=== PATIENT | female | born 1950 | race Caucasian/White ===

== ENCOUNTER 2017-03-02 14:08 | Observation (INO) ==
[2017-03-02] MEDS ORDERED: 0.9 % Sodium Chloride 1,000 ML IVC ONE (14:20)
--- NOTE | 2017-03-02 14:20 | Emergency Department Note ---
Disposition Clinical Impression: Abnormal chest CT, Thoracic compression fracture, Syncope, Frail elderly, Hepatic lesion, Fluid in endometrial cavity, Lesion of lung, DJD (degenerative joint disease) of cervical spine, Head injury, Pleural effusion, Diverticulosis , Atelectasis, right, Vomiting, Confusion, Dizziness, UTI (urinary tract infection) Disposition: Admitted As Inpatient Condition: Fair Referrals: NO,PCP [Non-Partnered Physician] - Forms: ED Satisfaction Letter General Adult HPI - General Chief complaint: ED Syncope Stated complaint: "passed out at [place]" Source: EMS Limitations: no limitations - History of Present Illness HPI Narrative: 66-year-old female reports emergency department with concerns for passing out. The patient reports she became severely dizzy and then a syncopal event as described. She states she went to an emergency department today and was evaluated for back pain. She describes flank pain. As well as spinal pain. A CT and pelvis was performed and she describes being diagnosed with a spinal fracture. She took a Flexeril 11:00 this morning. She went to her audiology appointment 11:30 AM and was feeling well. She went to a store with her and reportedly had a syncopal event about 2 PM. The patient was out for 2 or 3 minutes and was notably confused. She had an episode of nonbloody emesis. The patient does not really remember what happened. There is no history of seizure-like activity. Patient reports she "never passes out". She has no history of seizures or diabetes. The patient states she has some head pain. There is no history of laceration. No bleeding. No history of neck pain or abdominal pain chest pain or shortness of breath. No upper or lower extremity pain no fever, arthritis or pain sore throat or coughing up blood. There is no history of the DVT or cancer. The patient reports a remote history of pleural effusion requiring thoracentesis. Pain Scale: 6 - Related Data Home Medications Medication Instructions Recorded Confirmed Lisinopril/Hydrochlorothiazide 1 each PO DAILY 03/02/17 03/02/17 [Zestoretic 10-12.5 mg Tablet] Previous Rx's Medication Instructions Recorded Cetirizine HCl [Zyrtec] 10 mg PO QAM #30 capsule 08/27/15 Cyclobenzaprine [Flexeril] 10 mg PO TID #21 tablet 06/09/17 HYDROcodone/Acet 5/325 mg [[place] 1 tab PO Q6H #14 tab 03/02/17 5-325 mg] Allergies Allergy/AdvReac Type Severity Reaction Status Date / Time Erythromycin Base Allergy Hives Verified 03/02/17 08:37 levofloxacin [From Levaquin] Allergy See Verified 03/02/17 08:37 Comments methylprednisolone Allergy Hives Verified 03/02/17 08:37 Minocycline Allergy See Verified 03/02/17 08:37 Comments Penicillins Allergy Swelling Verified 03/02/17 08:37 of Lip/Tongue/Throat All systems ED: reviewed and negative except as stated. 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 Absent: scleral icterus, conjunctival injection, miosis, mydriasis - ENT ENT exam: normal exam, normal oropharynx, mucous membranes moist, normal external ear exam, other (Hearing aid in place) - Neck Neck exam: Present: normal inspection, full ROM, trachea midline. Absent: tenderness - Chest Chest inspection: Present: symmetric chest wall rise. Absent: tenderness - Respiratory Respiratory exam: Present: normal lung sounds bilaterally. Absent: respiratory distress, wheezes, stridor, accessory muscle use, prolonged expiratory phase - Cardiovascular Cardiovascular exam: Present: regular rate, normal rhythm, normal heart sounds - Abdominal Exam Abdominal exam: Present: soft, Non-Tender, normal bowel sounds. Absent: tenderness, distention, guarding, rebound, rigidity, pulsatile mass - Extremities Exam Extremities exam: Present: normal capillary refill, pedal edema. Absent: normal inspection, joint swelling, calf tenderness - Expanded Lower Extremity Exam Hip/Pelvis exam: Present: full ROM. Absent: tenderness Upper leg exam: Present: full ROM. Absent: tenderness Knee exam: Present: full ROM. Absent: tenderness Lower leg exam: Present: full ROM. Absent: tenderness, Homans' sign Ankle exam: Present: full ROM. Absent: tenderness Foot/toe exam: Present: full ROM. Absent: tenderness Neurovascular/Tendon exam: Present: normal capillary refill. Absent: motor deficit, sensory deficit, tendon deficit, extremity cold to touch, pallor - Back Exam Back exam: Present: normal inspection, full ROM. Absent: tenderness, CVA tenderness (L), vertebral tenderness - Neurological Exam Neurological exam: Present: alert, oriented X3, CN II-XII intact. Absent: motor sensory deficit - Psychiatric Psychiatric exam: Present: normal affect, normal mood - Skin Skin exam: Present: warm, dry, intact, normal color. Absent: rash, cyanosis, diaphoresis, erythema, pallor, mottled Course Vital Signs Temperature 97.5 F L 03/02/17 14:14 Pulse Rate 71 03/02/17 14:14 Respiratory Rate 16 03/02/17 14:14 Blood Pressure 136/71 03/02/17 14:14 O2 Sat by Pulse Oximetry 98 03/02/17 14:14 Temperature 97.5 F L 03/02/17 14:14 Pulse Rate 75 03/02/17 16:00 Respiratory Rate 18 03/02/17 16:00 Blood Pressure 111/67 03/02/17 16:00 O2 Sat by Pulse Oximetry 98 03/02/17 16:00 Oxygen Delivery Oxygen Delivery Room Air Medical Decision Making - [facility] Narrative Medical decision making narrative: The patient is elderly, she states described severe dizziness, then had an apparent syncopal event, hit her head and was significantly confused after the event and vomited once. Based on initial post injury reports her Glascow coma score was 14 or less at the scene, subsequently she improved in her mentation. She was seen in an ER earlier today regarding back pain. She complains of persistent back pain. She has what appear to be compression fractures of thoracic spine. The patient was also reportedly seen at her job boss office today and then had a syncopal event and came to this ED. at the initial ED visit, her CT abdomen and pelvis revealed fluid in the uterus which is abnormal. Abnormal chest findings were also noted. CT chest reveals lung lesions and what appears to be rounded atelectasis of undetermined origin, possibly from her previous thoracentesis when she was young. Chest x-ray does describe pleural effusions. The patient's laboratory studies are unremarkable. EKG shows no acute changes. CT head and cervical spine are negative. The patient took a Flexeril about 11:00, she passed out about 2 PM. Medication effect could be considered. Urinalysis shows abnormality suggestive of UTI. Urine culture will be sent. Antibiotic therapy ordered. Based on the patient's severe dizziness and apparent syncopal event with a depressed Glascow coma score status post injury and vomiting, severe back pain with apparent thoracic compression fractures, her frail elderly state, abnormal chest and abdominal CT scans, I thought it be appropriate to admit the patient the hospital for further evaluation. She is currently stable. I discussed the case with the hospitalist on-call who was excepted the patient to their care. - Lab Data Lab results reviewed: Yes I reviewed the patient's lab results. Result diagrams: 03/02/17 14:58 03/02/17 14:58 Lab Results 03/02/17 03/02/17 03/02/17 Range/Units 14:58 14:58 14:58 WBC 8.5 (4.3-11.1) K/mcL RBC 4.02 (3.82-4.97) M/mcL Hgb 11.9 (11.5-15.4) g/dL Hct 36.8 (35.3-44.9) % MCV 91.5 (83.0-100.0) fL MCH 29.6 (28.0-33.3) pg MCHC 32.3 (31.6-35.5) g/dL RDW 13.0 (11.5-14.5) % Plt Count 200 (140-400) K/mcL MPV 10.9 (9.4-12.4) fL Immature Gran % 0.6 (0-4) % Seg Neutrophils % 80.1 % Lymphocytes % 10.8 % Monocytes % 7.5 % Eosinophils % 0.6 % Basophils % 0.4 % Neutrophils # 6.8 (1.6-8.9) K/mcL Lymphocytes # 0.9 (0.6-4.6) K/mcL Monocytes # 0.6 (0.0-1.3) K/mcL Eosinophils # 0.1 (0.0-0.6) K/mcL Basophils # 0.0 (0.0-0.2) K/mcL PT 11.7 (9.4-12.1) Seconds INR 1.1 APTT 26.2 (26.0-36.0) Seconds Sodium 138 (136-145) mEq/L Potassium 4.5 (3.5-4.5) mEq/L Chloride 102 (98-109) mEq/L Carbon Dioxide 27 (19-29) mEq/L BUN 21 H (7-20) mg/dL Creatinine 1.02 (0.57-1.11) mg/dL Est GFR ( Amer) > 60 (> 60) Est GFR (Non-Af Amer) 54 L (> 60) BUN/Creatinine Ratio 21 (6-26) Glucose 119 H (70-99) mg/dL Calculated Osmolality 290 (280-300) Lactic Acid (0.5-2.2) mmol/L Calcium 9.6 (8.6-10.8) mg/dL Total Bilirubin 0.8 (0.2-1.2) mg/dL Direct Bilirubin 0.3 (0.0-0.5) mg/dL Indirect Bilirubin 0.5 (0.0-1.2) mg/dL AST 15 (5-34) Units/L ALT 7 (0-55) Units/L Alkaline Phosphatase 65 (38-126) Units/L Troponin I (0-0.03) ng/mL C-Reactive Protein 9 H (Less than 5) mg/L B-Natriuretic Peptide (0-100) pg/mL Serum Total Protein 7.5 (6.0-8.3) g/dL Albumin 4.2 (3.5-5.0) g/dL Globulin 3.3 (2.4-3.5) g/dL Albumin/Globulin Ratio 1.3 (1.1-2.2) Urine Color (Yellow) Urine Clarity (Clear) Urine pH (5.0-8.0) pH Units Ur Specific [place] (1.010-1.025) Urine Protein (Neg-Trace) mg/dL Urine Glucose (UA) (Normal) mg/dL Urine Ketones (Negative) mg/dL Urine Blood (Negative) Urine Nitrite (Negative) Urine Bilirubin (Negative) Urine Urobilinogen (Normal) mg/dL Ur Leukocyte Esterase (Negative) Urine Microscopic RBC (0-3) per hpf Urine Microscopic WBC (0-3) per hpf Ur Squamous Epith Cells (None-Few) per lpf Urine Bacteria (None-Few) per hpf Hyaline Casts (None-Few) per lpf 03/02/17 03/02/17 03/02/17 Range/Units 14:58 14:58 14:58 WBC (4.3-11.1) K/mcL RBC (3.82-4.97) M/mcL Hgb (11.5-15.4) g/dL Hct (35.3-44.9) % MCV (83.0-100.0) fL MCH (28.0-33.3) pg MCHC (31.6-35.5) g/dL RDW (11.5-14.5) % Plt Count (140-400) K/mcL MPV (9.4-12.4) fL Immature Gran % (0-4) % Seg Neutrophils % % Lymphocytes % % Monocytes % % Eosinophils % % Basophils % % Neutrophils # (1.6-8.9) K/mcL Lymphocytes # (0.6-4.6) K/mcL Monocytes # (0.0-1.3) K/mcL Eosinophils # (0.0-0.6) K/mcL Basophils # (0.0-0.2) K/mcL PT (9.4-12.1) Seconds INR APTT (26.0-36.0) Seconds Sodium (136-145) mEq/L Potassium (3.5-4.5) mEq/L Chloride (98-109) mEq/L Carbon Dioxide (19-29) mEq/L BUN (7-20) mg/dL Creatinine (0.57-1.11) mg/dL Est GFR ( Amer) (> 60) Est GFR (Non-Af Amer) (> 60) BUN/Creatinine Ratio (6-26) Glucose (70-99) mg/dL Calculated Osmolality (280-300) Lactic Acid 1.2 (0.5-2.2) mmol/L Calcium (8.6-10.8) mg/dL Total Bilirubin (0.2-1.2) mg/dL Direct Bilirubin (0.0-0.5) mg/dL Indirect Bilirubin (0.0-1.2) mg/dL AST (5-34) Units/L ALT (0-55) Units/L Alkaline Phosphatase (38-126) Units/L Troponin I 0.00 (0-0.03) ng/mL C-Reactive Protein (Less than 5) mg/L B-Natriuretic Peptide 80 (0-100) pg/mL Serum Total Protein (6.0-8.3) g/dL Albumin (3.5-5.0) g/dL Globulin (2.4-3.5) g/dL Albumin/Globulin Ratio (1.1-2.2) Urine Color (Yellow) Urine Clarity (Clear) Urine pH (5.0-8.0) pH Units Ur Specific [place] (1.010-1.025) Urine Protein (Neg-Trace) mg/dL Urine Glucose (UA) (Normal) mg/dL Urine Ketones (Negative) mg/dL Urine Blood (Negative) Urine Nitrite (Negative) Urine Bilirubin (Negative) Urine Urobilinogen (Normal) mg/dL Ur Leukocyte Esterase (Negative) Urine Microscopic RBC (0-3) per hpf Urine Microscopic WBC (0-3) per hpf Ur Squamous Epith Cells (None-Few) per lpf Urine Bacteria (None-Few) per hpf Hyaline Casts (None-Few) per lpf 03/02/17 Range/Units 17:14 WBC (4.3-11.1) K/mcL RBC (3.82-4.97) M/mcL Hgb (11.5-15.4) g/dL Hct (35.3-44.9) % MCV (83.0-100.0) fL MCH (28.0-33.3) pg MCHC (31.6-35.5) g/dL RDW (11.5-14.5) % Plt Count (140-400) K/mcL MPV (9.4-12.4) fL Immature Gran % (0-4) % Seg Neutrophils % % Lymphocytes % % Monocytes % % Eosinophils % % Basophils % % Neutrophils # (1.6-8.9) K/mcL Lymphocytes # (0.6-4.6) K/mcL Monocytes # (0.0-1.3) K/mcL Eosinophils # (0.0-0.6) K/mcL Basophils # (0.0-0.2) K/mcL PT (9.4-12.1) Seconds INR APTT (26.0-36.0) Seconds Sodium (136-145) mEq/L Potassium (3.5-4.5) mEq/L Chloride (98-109) mEq/L Carbon Dioxide (19-29) mEq/L BUN (7-20) mg/dL Creatinine (0.57-1.11) mg/dL Est GFR ( Amer) (> 60) Est GFR (Non-Af Amer) (> 60) BUN/Creatinine Ratio (6-26) Glucose (70-99) mg/dL Calculated Osmolality (280-300) Lactic Acid (0.5-2.2) mmol/L Calcium (8.6-10.8) mg/dL Total Bilirubin (0.2-1.2) mg/dL Direct Bilirubin (0.0-0.5) mg/dL Indirect Bilirubin (0.0-1.2) mg/dL AST (5-34) Units/L ALT (0-55) Units/L Alkaline Phosphatase (38-126) Units/L Troponin I (0-0.03) ng/mL C-Reactive Protein (Less than 5) mg/L B-Natriuretic Peptide (0-100) pg/mL Serum Total Protein (6.0-8.3) g/dL Albumin (3.5-5.0) g/dL Globulin (2.4-3.5) g/dL Albumin/Globulin Ratio (1.1-2.2) Urine Color Yellow (Yellow) Urine Clarity Clear (Clear) Urine pH 6.0 (5.0-8.0) pH Units Ur Specific [place] > 1.030 H (1.010-1.025) Urine Protein Negative (Neg-Trace) mg/dL Urine Glucose (UA) Normal (Normal) mg/dL Urine Ketones Negative (Negative) mg/dL Urine Blood Small H (Negative) Urine Nitrite Negative (Negative) Urine Bilirubin Negative (Negative) Urine Urobilinogen Normal (Normal) mg/dL Ur Leukocyte Esterase Moderate H (Negative) Urine Microscopic RBC 5-15 H (0-3) per hpf Urine Microscopic WBC 15-30 H (0-3) per hpf Ur Squamous Epith Cells Many H (None-Few) per lpf Urine Bacteria None Seen (None-Few) per hpf Hyaline Casts None Seen (None-Few) per lpf - Radiology Data Radiology results reviewed: Yes I reviewed the patient's radiology results.
[2017-03-02 15:11] LABS: Basophils % 0.4 %; Eosinophils # 0.1 K/mcL (0.0-0.6); Eosinophils % 0.6 %; Hematocrit 36.8 % (35.3-44.9); Hemoglobin 11.9 g/dL (11.5-15.4); Immature Granulocytes % 0.6 % (0-4); Lymphocytes # 0.9 K/mcL (0.6-4.6); Lymphocytes % 10.8 %; Mean Corpuscular HGB Conc 32.3 g/dL (31.6-35.5); Mean Corpuscular Hemoglobin 29.6 pg (28.0-33.3); Mean Corpuscular Volume 91.5 fL (83.0-100.0); Mean Platelet Volume 10.9 fL (9.4-12.4); Monocytes # 0.6 K/mcL (0.0-1.3); Monocytes % 7.5 %; Neutrophils # 6.8 K/mcL (1.6-8.9); Platelet Count 200 K/mcL (140-400); Red Blood Count 4.02 M/mcL (3.82-4.97); Segmented Neutrophils % 80.1 %
[2017-03-02 15:18] LABS: Activated Partial Thrombo Time 26.2 Seconds (26.0-36.0)
[2017-03-02 15:23] LABS: INR 1.1; Prothrombin Time 11.7 Seconds (9.4-12.1)
[2017-03-02 15:30] LABS: Alanine Aminotransferase 7 Units/L (0-55); Albumin 4.2 g/dL (3.5-5.0); Albumin/Globulin Ratio 1.3 (1.1-2.2); Alkaline Phosphatase 65 Units/L (38-126); Aspartate Amino Transferase 15 Units/L (5-34); BUN/Creatinine Ratio 21 (6-26); Bilirubin,Direct 0.3 mg/dL (0.0-0.5); Bilirubin,Indirect 0.5 mg/dL (0.0-1.2); Bilirubin,Total 0.8 mg/dL (0.2-1.2); Blood Urea Nitrogen 21 mg/dL (7-20); C-Reactive Protein 9 mg/L (Less than 5); Calcium 9.6 mg/dL (8.6-10.8); Carbon Dioxide 27 mEq/L (19-29); Chloride 102 mEq/L (98-109); Globulin 3.3 g/dL (2.4-3.5); Glucose 119 mg/dL (70-99); Osmolality,Calculated 290 (280-300); Potassium 4.5 mEq/L (3.5-4.5); Sodium 138 mEq/L (136-145); Total Protein 7.5 g/dL (6.0-8.3); eGFR For African Americans > 60 (> 60); eGFR For Non-African Americans 54 (> 60)
[2017-03-02 17:29] LABS: Bacteria,Urine None Seen per hpf (None-Few); Bilirubin,Urine Negative (Negative); Blood,Urine Small (Negative); Clarity,Urine Clear (Clear); Color,Urine Yellow (Yellow); Glucose,Urine (UA) Normal (Normal); Hyaline Casts,Urine None Seen per lpf (None-Few); Ketones,Urine Negative (Negative); Leukocyte Esterase,Urine Moderate (Negative); Nitrite,Urine Negative (Negative); Protein,Urine Negative (Neg-Trace); Specific Gravity,Urine > 1.030 (1.010-1.025); Squamous Epithelial Cell,Urine Many per lpf (None-Few); Urobilinogen,Urine Normal (Normal); WBC,Urine 15-30 per hpf (0-3)
[2017-03-02] MEDS ORDERED: *HR* HYDROcodone/Acet 5/325 mg TABLET PO ONE (18:13)
[2017-03-02] MEDS ORDERED: Nitrofurantoin (BID) 100 MG CAPSULE PO ONE (18:39)
[2017-03-02] MEDS ORDERED: Naloxone 0.4 MG/ML INJ IVP PRN (19:40)
[2017-03-02] MEDS ORDERED: Ondansetron 4 MG/2 ML VIAL IVP PRN (19:40)
[2017-03-02] MEDS ORDERED: Acetaminophen 325 MG TABLET PO PRN (19:40)
--- NOTE | 2017-03-02 23:10 | Internal Med History&Physical ---
Date of Encounter: 03/02/17 Time of Encounter: 22:30 Assessment and Plan (1) Syncope Current visit: Yes Status: Acute Patient had an episode of syncope one to 2 hours after taking the new medication which is a muscle relaxant. It may be a side effect of the medication. Patient has never had a stress test. Will obtain echocardiogram and pharmacological stress test. Placed under observation on telemetry. Intravenous fluids. Qualifiers: Syncope type: unspecified Qualified Code(s): R55 - Syncope and collapse (2) HTN (hypertension) Current visit: Yes Status: Chronic Stable. Continue home medications Qualifiers: Hypertension type: essential hypertension Qualified Code(s): I10 - Essential (primary) hypertension Internal Medicine - H&P: HPI Chief complaint: Syncope Admitted From: Emergency Dept Plans for Post Hospital Care: Home History of present illness: Ms. Mercedes is a 66 year old female presented to the emergency room from [facility] after she had a syncopal episode there. 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 She went to the emergency room today for her back pain. She was given a single dose of muscle relaxant and discharged. After that, within 1-2 hours, she went shopping with her . While she was shopping, the patient felt like she was going to pass out and fell down and hit her head. She reports feeling lightheaded prior to passing out. She denies any nausea or excessive sweating prior to passing out. However, after passing out and waking up, she did have an episode of vomiting. There is no report of tongue biting, bladder or bowel incontinence. No history of chest pain, palpitations, vertigo, shortness of breath, cough or wheezing. No history of fever or chills. Past Med Surg Social Fam HX - Past Medical History Attestation: Yes The following information was validated with the patient. Source: patient Medical history: hypertension, other Psychiatric history: no psych history - Past Surgical History Surgical History: thyroidectomy - Social History Smoking Status: Never smoker Smokeless Tobacco Status: No Alcohol use: none Drug use: none Current living situation: Home, With Family Activity Level: Independent ambulation Recent Out of Country Travel Within the Last 8 Weeks: No Exposure or Possible Exposure to Illness During Travel: No - Family History Father Living Status: Age at : 95 Cause of : Luekemia Hx Family Cardiac Disorders: Yes Hx Family Respiratory Disorders: No Hx Family Cancer: Yes (Leukemia) Hx Family GI Disorders: No Hx Family Genitourinary Disorders: No Hx Family Endocrine Disorder: Yes (Thyroid) Hx Family Musculoskeletal Disorders: No Hx Family Neuromuscular Disorders: No Hx Family Neurologic Disorders: No Hx Family HEENT Disorders: No Hx Family Autoimmune Disorders: No Hx Family Reproductive Disorders: No Hx Family Psychosocial Disorders: Yes (Panic Attacks) Hx Family Medical Disorders: No Mother Hx Family Cardiac Disorders: Yes (HTN, HLD) Hx Family Respiratory Disorders: No Hx Family Cancer: No Hx Family GI Disorders: No Hx Family Genitourinary Disorders: No Hx Family Endocrine Disorder: Yes (DM, Thyroid disease) Hx Family Musculoskeletal Disorders: No Hx Family Neuromuscular Disorders: No Hx Family Neurologic Disorders: No Hx Family HEENT Disorders: No Hx Family Autoimmune Disorders: No Hx Family Reproductive Disorders: No Hx Family Psychosocial Disorders: No Hx Family Medical Disorders: No Internal Medicine - H&P: Meds Cetirizine HCl [Zyrtec] 10 mg PO QAM #30 capsule 08/27/15 [Rx] Aspirin 325 mg PO DAILY 03/02/17 [History] Cyclobenzaprine [Flexeril] 10 mg PO TID #21 tablet 03/02/17 [Rx] Fluticasone Propionate Nasal [Flonase] 50 mcg NS DAILY PRN 03/02/17 [History] HYDROcodone/Acet 5/325 mg [[place] 5-325 mg] 1 tab PO Q6H #14 tab 03/02/17 [Rx] Lisinopril/Hydrochlorothiazide [Zestoretic 10-12.5 mg Tablet] 1 each PO DAILY [History] [place]-3/Dha/Epa/Fish Oil [Fish Oil 1,000 mg Softgel] 1,000 mg PO DAILY 03/02/17 [History] Allergies Erythromycin Base Allergy (Verified 03/02/17 08:37) Hives levofloxacin [From Levaquin] Allergy (Verified 03/02/17 08:37) See Comments Nervousness methylprednisolone Allergy (Verified 03/02/17 08:37) Hives Minocycline Allergy (Verified 03/02/17 08:37) See Comments Nervousness Penicillins Allergy (Verified 03/02/17 08:37) Swelling of Lip/Tongue/Throat All Systems PM: A 10-system review of systems was performed and is negative for pertinent findings except as documented above in the HPI. - Constitutional Vitals: Temp Pulse Resp BP Pulse Ox 97.8 F 85 16 124/73 100 03/02/17 22:51 03/02/17 22:51 03/02/17 22:51 03/02/17 22:51 03/02/17 22:51 Exam: Gen.: Lying in bed. No acute distress. Eyes: Pupils equal, round and reactive to light. Extraocular muscles intact. ENT: Moist mucous membranes. No oropharyngeal erythema or discharge. Chest: Clear to auscultation bilaterally. No adventitious sounds present. CVS: First and second heart sounds present. No murmurs, rubs or gallops. Abdomen: Soft, nontender, nondistended. Bowel sounds present. No hepatosplenomegaly. Skin: No decubitus ulcers appreciated. 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 Psychiatric: Alert, awake and oriented to time, place and person. Lymphatic system: No lymphadenopathy appreciated Internal Med - H&P Results - Labs CBC & Chem 7: 03/02/17 14:58 03/02/17 14:58 Labs: Cardiac Enzymes 03/02/17 Range/Units 19:54 Troponin I 0.00 (0-0.03) ng/mL
[2017-03-02] MEDS ORDERED: Fluticasone Propionate Nasal 50 MCG/SPRAY BOTTLE NS PRN (23:15)
[2017-03-02] MEDS ORDERED: 0.9 % Sodium Chloride 1,000 ML IVC SCH (23:15)
[2017-03-03 00:40] LABS: Alanine Aminotransferase 7 Units/L (0-55); Albumin 3.4 g/dL (3.5-5.0); Albumin/Globulin Ratio 1.2 (1.1-2.2); Alkaline Phosphatase 54 Units/L (38-126); Aspartate Amino Transferase 12 Units/L (5-34); BUN/Creatinine Ratio 20 (6-26); Bilirubin,Total 0.6 mg/dL (0.2-1.2); Blood Urea Nitrogen 16 mg/dL (7-20); Calcium 8.7 mg/dL (8.6-10.8); Carbon Dioxide 26 mEq/L (19-29); Chloride 104 mEq/L (98-109); Globulin 2.9 g/dL (2.4-3.5); Glucose 108 mg/dL (70-99); Osmolality,Calculated 288 (280-300); Potassium 3.9 mEq/L (3.5-4.5); Sodium 138 mEq/L (136-145); Total Protein 6.3 g/dL (6.0-8.3); eGFR For African Americans > 60 (> 60); eGFR For Non-African Americans > 60 (> 60)
[2017-03-03] MEDS ORDERED: Regadenoson 0.4 MG/5 ML SYRINGE IVP ONE (07:11)
[2017-03-03] MEDS ORDERED: Loratadine 10 MG TABLET PO SCH (09:00)
[2017-03-03] MEDS ORDERED: Aspirin 325 MG TABLET PO SCH (09:00)
--- NOTE | 2017-03-03 14:12 | Nuclear Medicine Stress Report ---
Regadenoson Nuclear Stress Name: Stormy Mercedes Date of Study: 03/03/2017 Date: 1950 Ht: 64.0 in Medical Record#: [id number] Age: 66 Wt: 160.0 lb Gender: Female Order #: [id number] Location: [facility] Room: [facility] Supervising Provider: Liza Khanna CNP Reading Physician: Mario Fernandez MD, [facility] Ordering Physician: Flavio Buckner CNP Primary Care Physician: Flavio Buckner CNP Stress Technologist: Lisa Magana, HEALTH INSURANCE AGENT, CCT, CPFT Director Ehs: Brett Reeves Indications: Syncope Impression: No significant ECG changes with regadenoson. Gated LVEF > 70%. Perfusion imaging was negative for ischemia or infarct. History: Hypertension Stress Test Summary: Stress Test Type: Pharmacologic Regadenoson 0.4mg/5ml given IV Baseline Information: Initial Heart Rate: 85 Blood Pressure: 142/70 Stress Information: Test Terminated Due to (primary): As per protocol Maximum Blood Pressure: 122/62 Maximum Heart Rate: 125 Percent Maximum Heart Rate Achieved: 78 Double Product: [id number] Symptoms: Shortness of breath Nuclear Summary: SPECT myocardial perfusion imaging using Tc99m Sestamibi given intravenously was performed at rest and following cardiac stress testing. The resting images were obtained following initial dose of 11.3 mCi. Following stress an additional dose of 31.2 mCi was given at peak exercise or 30 seconds post regadenoson infusion. Findings: Stress Note * Resting ECG demonstrated normal sinus rhythm. * No baseline arrhythmias were noted. * Patient had no chest pain during stress. * No arrhythmias were noted during stress. * No significant ECG changes with regadenoson. Hemodynamic responses * Normal hemodynamic responses to pharmacologic stress. Study Quality * Study quality is good. Gated EF > 70% * Gated LVEF > 70%. Left Ventricle * The left ventricle is not dilated. * Normal Segmental Perfusion in rest. * Normal segmental perfusion in stress. TID * No evidence of transient ischemic dilatation. Updated by Mario Fernandez MD, [facility] on 03/03/2017 2:04:20 PM electronically signed on 03/03/2017 2:04:39 PM with status of Final
--- NOTE | 2017-03-03 15:07 | Discharge Summary ---
Date of Encounter: 03/03/17 Time of Encounter: 15:00 - Discharge Diagnosis (1) Syncope Priority: Primary Status: Acute Comments: Patient states that she was seen in the emergency department at [facility] yesterday due to back pain. She said she was diagnosed with a vertebral fracture. Patient states that she was given Percocet and Flexeril at the emergency department at about 2 hours later was out shopping and had a syncopal episode. She said she was awake for the whole thing and remembers at all. Said there was a man standing next to her who witnessed the episode and states that even he told her she did not lose consciousness. She said after her syncopal episode she was sitting in the floor, at [employer] and had one episode of vomiting. She is brought to the emergency department for evaluation. A stress test today that showed a gated EF greater than 70% and was negative for ischemia or infarct. She also had a chest CTA that was negative for PE, left hemithorax pleural calcifications that could represent a prior hemothorax or asbestos exposure. And a masslike consolidation left lower lobe suggestive of rounded atelectasis. Patient had an echocardiogram that showed normal systolic function, LVEF 65-70% , normal diastolic dysfunction, no significant valvular dysfunction and no evidence of pulmonary hypertension. Patient denies chest pain or cough. She denies knowledge of any asbestos exposure. She reports that when she was 14 she had she had pneumonia and had to have her lung drained. She was told that it would always leave a scar. Patient did follow up with primary care evaluation and further testing. I did discuss with patient continue her medications at home, however, cutting the medications in half, making sure to drink plenty of fluids, and take them at home when she is either lying or seated for safety. Qualifiers: Syncope type: unspecified Qualified Code(s): R55 - Syncope and collapse (2) Thoracic compression fracture Priority: Secondary Status: Acute Comments: Patient states that she was seen in the emergency department for compression fracture. CT chest showed no aggressive lytic or blastic bony lesion, no acute fracture, chronic T12 anterior wedge deformity. Patient was given Percocet, Flexeril, and Lidoderm patches. We will continue all at home. Qualifiers: Encounter type: subsequent encounter Fracture healing: with routine healing Qualified Code(s): S22.000D - Wedge compression fracture of unspecified thoracic vertebra, subsequent encounter for fracture with routine healing (3) Fluid in endometrial cavity Priority: Secondary Status: Acute Comments: Findings on CT in transabdominal and transvaginal ultrasound. Ultrasound showed small volume of echolucent fluid within the endometrial canal. Normal appearance of endometrial stripe. Small volume of nonspecific echolucent free fluid. Patient states that she sees her normal nurse practitioner for her women's health needs. We discussed the patient needs to follow up with her in the next couple of weeks for evaluation. She denies any abdominal pain, cramping, vaginal bleeding or discharge. (4) UTI (urinary tract infection) Priority: Secondary Status: Acute Comments: Patient was told the emergency department that she has urinary tract infection. She is being treated with Macrobid. Continue this at home and wait for culture and sensitivity. Qualifiers: Urinary tract infection type: acute cystitis Hematuria presence: without hematuria Qualified Code(s): N30.00 - Acute cystitis without hematuria (5) HTN (hypertension) Priority: Secondary Status: Chronic Comments: Chronic continue home medications. Qualifiers: Hypertension type: essential hypertension Qualified Code(s): I10 - Essential (primary) hypertension - Discharge Medications Prescriptions: Lidocaine Patch [Lidoderm 5% patch] 1 each TP DAILY #10 adh..patch Home Medications: Cetirizine HCl [Zyrtec] 10 mg PO QAM #30 capsule 08/27/15 [Rx] Aspirin 325 mg PO DAILY 03/02/17 [History] Cyclobenzaprine [Flexeril] 10 mg PO TID #21 tablet 03/02/17 [Rx] Fluticasone Propionate Nasal [Flonase] 50 mcg NS DAILY PRN 03/02/17 [History] HYDROcodone/Acet 5/325 mg [[place] 5-325 mg] 1 tab PO Q6H #14 tab 03/02/17 [Rx] Lisinopril/Hydrochlorothiazide [Zestoretic 10-12.5 mg Tablet] 1 each PO DAILY [History] [place]-3/Dha/Epa/Fish Oil [Fish Oil 1,000 mg Softgel] 1,000 mg PO DAILY 03/02/17 [History] Lidocaine Patch [Lidoderm 5% patch] 1 each TP DAILY #10 adh..patch 03/03/17 [Rx] Allergies/Adverse Reactions: Allergies Erythromycin Base Allergy (Verified 03/02/17 08:37) Hives levofloxacin [From Levaquin] Allergy (Verified 03/02/17 08:37) See Comments Nervousness methylprednisolone Allergy (Verified 03/02/17 08:37) Hives Minocycline Allergy (Verified 03/02/17 08:37) See Comments Nervousness Penicillins Allergy (Verified 03/02/17 08:37) Swelling of Lip/Tongue/Throat Procedures/tests Complete & Pending: Procedures Performed prior 72 hours Category Date Time Status NM mary perf SPECT multi [NM] Routine Exams 03/02/17 23:06 Taken US pelvis extended [US] Routine Exams 03/03/17 10:00 Completed EV echocardiogram Routine Y 03/03/17 08:00 Completed SP pharm nuclear stress Routine Y 03/03/17 23:06 Completed Date of admission: 03/02/17 18:39 Primary care physician: Flavio Buckner CNP Discharging clinician: Anay Merritt Anticipated date of discharge: 03/03/17 - Patient Status Disposition: Home, Self-Care Condition: Good Functional capacity at discharge: independent ambulation Overall status at discharge: patient is back to baseline - Discharge Instructions Follow Up With: Flavio Buckner CNP [Primary Care Provider] - Additional Instructions: Follow up with your nurse practitioner in the next 1-2 weeks to discuss findings of chest CT angio and pelvic ultrasound. Return to the emergency department immediately if he began having chest pain, dizziness, if you pass out again, or become short of breath. As we discussed, you may cut your Percocet and Flexeril in half, do not take them together at the same time, and make sure that you are home either seated, or lying down for safety. Make sure that you drink plenty of fluids and stay hydrated. Continue her normal home medications. I have written a prescription for Lidoderm patches, 1 daily to painful area of back. - Diet and Activity Activity: increase activity as tolerated Diet: advance to your usual diet Hospital course: Ms. Mercedes is a 66 year old female - Time Spent with Patient Total time spent providing and/or coordinating discharge services: - Constitutional Vitals: Temp Pulse Resp BP Pulse Ox 98.1 F 87 16 117/66 96 03/03/17 07:03 03/03/17 07:03 03/03/17 07:03 03/03/17 07:03 03/03/17 07:03 General appearance: Present: cooperative, A&O X 3, pleasant, no acute distress, answers questions appropriately - Head Head exam: Present: normal inspection - Eye Eye exam: Present: normal appearance, conjuntiva pink - ENT ENT exam: Present: mucous membranes moist, normal exam, normal external ear exam - Neck Neck exam general surgery: Present: normal inspection. Absent: lymphadenopathy , tenderness - Respiratory Respiratory exam: Present: CTAB. Absent: chest wall tenderness, decreased breath sounds, rales, respiratory distress, rhonchi, wheezes - Cardiovascular Cardiovascular exam: Present: RRR, +S1, +S2. Absent: clicks, diastolic murmur, gallop, systolic murmur - GI/Abdominal GI/Abdominal exam: Present: normal bowel sounds, soft. Absent: distended, hepatomegaly, tenderness - Extremities Exam Extremities exam: Present: normal capillary refill, warm, radial pulses palpable and symetrical. Absent: pedal edema, tenderness - Neurological Exam Neurological exam: Present: oriented X3, no focal deficits, strengths equal and symetr throughout. Absent: alert, altered
[2017-03-03 15:19] VITALS: BP 119/71
--- NOTE | 2017-03-05 06:57 | Electrocardiograph Report ---
[place] [id number] Test Date: 2017-03-02 Pat Name: Stormy Mercedes Department: 105 Room: 3B12 Gender: F Text Transcriber: ZANA : 1950 Requested By: Duke Holguin Order Number: [id number] Reading MD: Jaspreet Apple MD Measurements Intervals Byars Rate: 75 P: 22 WA: 141 QRS: 27 QRSD: 92 T: 39 QT: 373 QTc: 402 Interpretive Statements SINUS RHYTHM Electronically Signed On 03-05-2017 6:56:18 EDT by Jaspreet Apple MD
== END 2017-03-03 18:05 | disposition home or self-care (01) ==
LOC: 3BNU 14:08 → EMEROO 14:08 → 3BNU 19:55
PROVIDERS: ADMIT Internal Medicine; ATTEND Registered Nurse